=== PATIENT | female | born 1960 | race Caucasian/White ===

== ENCOUNTER → 2020-03-06 15:36 | Outpatient (CLI) | payer MEDICARE ==
[2020-03-06 16:45] LABS: BASOPHILS 0.1 % (0-2); EOSINOPHILS 0.2 % (0-7); HEMATOCRIT 31.7 % (36.0-48.0); HEMOGLOBIN 9.6 g/dL (12-16); IMMATURE GRANULOCYTES 0.3 % (0-5); LYMPHOCYTES 15.6 % (15-50); MCH 27.2 pg (26.0-34.0); MCHC 30.3 g/dL (31.0-37.0); MCV 89.8 fL (80.0-100.0); MEAN PLATELET VOLUME 8.3 fL (7.4-10.4); MONOCYTES 6.6 % (2-11); NEUTROPHILS 77.2 % (40-80); PLATELET COUNT 587 10x3/uL (130-400); RBC 3.53 10x6/uL (4.00-5.40); RDW 16.5 % (11.5-14.5); WBC 12.1 10x3/uL (4.8-10.8)
[2020-03-06 17:06] LABS: ALKALINE PHOSPHATASE 158 U/L (30-120); ALT (SGPT) 62 U/L (10-68); BILIRUBIN - TOTAL 0.16 mg/dL (0.2-1.3); CALC OSMOLALITY 272 mosm/kg (275-300); CALCIUM 9.7 mg/dL (8.5-10.1); CARBON DIOXIDE 23.8 mmol/L (21.0-32.0); CHLORIDE - SERUM 104 mmol/L (98-107); CREATININE - SERUM 0.7 mg/dL (0.6-1.3); FERRITIN 515 ng/mL (3-244); GLUCOSE 98 mg/dL (74-106); POTASSIUM - SERUM 3.5 mmol/L (3.5-5.1); PROTEIN - SERUM 7.3 g/dL (6.4-8.2); SODIUM 137 mmol/L (136-145); UREA NITROGEN 10 mg/dL (7-18); eGFR NON AFRICAN AMERICAN 90 mL/min (90-120)
== END | disposition home or self-care (01) ==
LOC: D.LAB 15:36
PROVIDERS: ATTEND Internal Medicine Hematology & Oncology
DX: D47.3 Essential (hemorrhagic) thrombocythemia (principal); E87.6 Hypokalemia; R79.9 Abnormal finding of blood chemistry, unspecified

== ENCOUNTER 2020-03-23 19:18 | Inpatient (IN) | payer MEDICARE, MEDICAID ==
[~2020-03-23] VITALS: Ht 157.5 cm; Wt 64.1 kg
--- NOTE | ~2020-03-23 | EC ---
PATIENT:MASTER CERVANTES DATE OF SERVICE: 03/23/20 SEX: F MEDICAL RECORD: [id number] DATE OF : 58 LOCATION:D.M2 D.212 AGE OF PATIENT: 59 ADMISSION DATE: 03/23/20 REFERRING PHYSICIAN: INTERPRETING PHYSICIAN: ALLIE VERDIN MD ECHOCARDIOGRAM REPORT ECHO CHARGES 4 ECHO COMPLETE Date: 03/25/20 CLINICAL DIAGNOSIS: SOB R/O THROMBUS OR TUMOR IN RA ECHOCARDIOGRAPHIC MEASUREMENTS (adult normal given) AC root (d.<3.7cm) 2.5 cm LV Septum d (<1.2 cm> 1.3 cm Valve Excursion 1.4 cm LV Septum (systole) 1.5 cm Left Atria (s.<4.0cm> 1.9 cm LVPW d(<1.2cm) 1.1 cm RV (d.<2.3cm) 2.1 cm LVPW (sytole) 1.8 cm LV diastole(<5.6CM) 4.0 cm MV E-F(>70mm/sec) cm LV systole 2.2 cm LVOT Diameter 1.8 cm MV exc.(>10mm) cm Est.ejection fraction (50-75%) % DOPPLER: LVIT cm/sec A 83.0 cm/sec E 105 cm/sec LA cm/sec RVSP 23.0 mmHg LVOT 97.0 cm/sec AOP1/2T m/s Asc. Ao 196 cm/sec RVOT 73.0 cm/sec RA cm/sec PA 92.0 cm/sec AV Gradient Peak 15.4 mmHg AV Mean 7.8 mmHg AV Area 1.3 cm MV Gradient Peak 5.7 mmHg MV Mean 1.6 mmHg MV Area cm COMMENTS: Cardiac Rehabilitation Program Director: Yaneli CLAUDIODSOE Coding Assistant: Jake Verdin TAPE# PACS Pericardial Effusion Y DATE OF SERVICE: 03/25/2020 PROCEDURE: Transthoracic echocardiogram. FINDINGS: Left ventricle: Mild left ventricular hypertrophy concentric. Ejection fraction between 35% to 40% with mild global hypokinesis. Left atrium is normal size and function. ECHOCARDIOGRAM REPORT [id number] MASTER CERVANTES Aortic valve appears to be normal. Mitral valve appears to be normal. Tricuspid valve is normal. Right ventricle is normal size and function. Right atrium is normal. There is no obvious area of tumor involving the right atrial structure. There is a small pericardial effusion. TRANSINT:[id number] Voice Confirmation ID: [id number] DOCUMENT ID: [id number] ALLIE VERDIN MD CC: [id number] DICTATION DATE: 03/25/20 184 STUDENT RECRUITER: 03/26/20 0209 ADM IN [facility] [address] [id number]
--- NOTE | 2020-03-23 20:32 | NUR ---
DR POWERS INSERTED LEFT JUGULAR IV FOR PATIENT.
[2020-03-23 20:38] LABS: BASOPHILS 0.1 % (0-2); EOSINOPHILS 0.1 % (0-7); HEMATOCRIT 32.8 % (36.0-48.0); HEMOGLOBIN 10.3 g/dL (12-16); IMMATURE GRANULOCYTES 0.3 % (0-5); LYMPHOCYTES 11.8 % (15-50); MCHC 31.4 g/dL (31.0-37.0); MCV 85.9 fL (80.0-100.0); MEAN PLATELET VOLUME 8.4 fL (7.4-10.4); MONOCYTES 5.5 % (2-11); NEUTROPHILS 82.2 % (40-80); PLATELET COUNT 597 10x3/uL (130-400); RBC 3.82 10x6/uL (4.00-5.40); RDW 16.8 % (11.5-14.5); WBC 15.7 10x3/uL (4.8-10.8)
[2020-03-23 20:54] LABS: APTT 37.1 SECONDS (22.8-39.4); INR 1.14 (0.85-1.17); PROTIME 14.5 SECONDS (11.6-15.0)
[2020-03-23 20:56] LABS: D-DIMER-QUANTITATIVE 1.94 ug/mLFEU (0.20-0.54)
[2020-03-23 21:06] LABS: ALBUMIN 2.2 g/dL (3.4-5.0); ALKALINE PHOSPHATASE 186 U/L (30-120); ALT (SGPT) 36 U/L (10-68); CALCIUM 9.7 mg/dL (8.5-10.1); CARBON DIOXIDE 27.7 mmol/L (21.0-32.0); CHLORIDE - SERUM 95 mmol/L (98-107); CKMB 1.1 U/L (0.0-3.6); CREATINE KINASE 24 UL (21-215); CREATININE - SERUM 1.1 mg/dL (0.6-1.3); PRO BNP 784 pg/mL (0-125); PROTEIN - SERUM 8.1 g/dL (6.4-8.2); SODIUM 133 mmol/L (136-145); UREA NITROGEN 12 mg/dL (7-18); eGFR NON AFRICAN AMERICAN 54 mL/min (90-120)
[2020-03-23 21:07] LABS: CALC OSMOLALITY 270 mosm/kg (275-300); GLUCOSE 181 mg/dL (74-106)
[2020-03-23 21:10] LABS: POTASSIUM - SERUM 2.7 mmol/L (3.5-5.1); TROPONIN-I < 0.017 ng/mL (0.000-0.060)
--- NOTE | 2020-03-23 22:10 | NUR ---
ZITHROMAX 25 CC INFUSED IN ER, TRANSFERRED WITH PATIENT TO FLOOR INFUSING.
--- NOTE | 2020-03-23 22:34 | NUR ---
PT ARRIVED TO ROOM VIA W/C. DYSPNEA ON EXERTION BUT GAIT SLOW AND STEADY. FREQUENT COUGH. ORIENTED TO ROOM. DAUGHTER AT BEDSIDE. NO DISTRESS OBSERVED. WILL CTM.
[2020-03-23] MEDS ORDERED: CYMBALTA30 MG PO (23:00)
[2020-03-23] MEDS ORDERED: CYCLOBENZAPRINE10 MG PO (23:00)
[2020-03-23] MEDS ORDERED: CYMBALTA60 MG PO (23:01)
[2020-03-23] MEDS ORDERED: TRAZODONE HCL150 MG PO (23:02)
[2020-03-23] MEDS ORDERED: ONDANSETRON ODT8 MG PO (23:03)
[2020-03-23] MEDS ORDERED: FUROSEMIDE40 MG PO (23:03)
[2020-03-23] MEDS ORDERED: CRESTOR20 MG PO (23:04)
[2020-03-23] MEDS ORDERED: LEVOTHYROXINE75 MCG PO (23:09)
[2020-03-23] MEDS ORDERED: [UNRECOGNIZED DRUG - OTHER] (23:09)
[2020-03-23] MEDS ORDERED: ALBUTEROL SULF8.5 GM INH (23:10)
[2020-03-23] MEDS ORDERED: LYRICA75 MG PO (23:10)
[2020-03-23] MEDS ORDERED: FERROUS SULFAT325 MG PO (23:32)
[2020-03-24 00:11] VITALS: BP 106/52; BMI 23.4
[2020-03-24 04:30] VITALS: BP 122/86
[2020-03-24] MEDS ORDERED: VALIUM10 MG PO (06:33)
--- NOTE | 2020-03-24 07:48 | NUR ---
PT RESTING PEACEFULLY, LYIN GIN BED. EYES CLOSED, BREATHS EVEN/REUGLAR AND UNLABORED. NO SIGNS OR SYMPTOMS OF ACUTE DISTRESS AT THIS TIME. DAUGHTER RESTING PEACEFULLY AT BEDSIDE IN RECLINER. CL IN REACH, SRX2.
[2020-03-24 09:51] LABS: % SATURATION 13 % (15-55); IRON 20 ug/dl (35-150); TOTAL IRON BIND CAPACITY 147 ug/dl (260-445); UNSAT IRON BIND CAPACITY 127 ug/dl (150-375)
[2020-03-24 10:01] LABS: BASOPHILS 0.1 % (0-2); EOSINOPHILS 0.1 % (0-7); HEMATOCRIT 31.7 % (36.0-48.0); HEMOGLOBIN 9.7 g/dL (12-16); IMMATURE GRANULOCYTES 0.4 % (0-5); LYMPHOCYTES 17.2 % (15-50); MCH 26.6 pg (26.0-34.0); MCHC 30.6 g/dL (31.0-37.0); MCV 87.1 fL (80.0-100.0); MEAN PLATELET VOLUME 8.6 fL (7.4-10.4); MONOCYTES 5.4 % (2-11); NEUTROPHILS 76.8 % (40-80); PLATELET COUNT 617 10x3/uL (130-400); RBC 3.64 10x6/uL (4.00-5.40); RDW 16.9 % (11.5-14.5); WBC 14.3 10x3/uL (4.8-10.8)
[2020-03-24 10:14] VITALS: BP 100/56
[2020-03-24 10:18] LABS: FERRITIN 714 ng/mL (3-244); MAGNESIUM - SERUM 1.7 mg/dL (1.8-2.4)
[2020-03-24 10:45] LABS: ALBUMIN 1.9 g/dL (3.4-5.0); ALKALINE PHOSPHATASE 173 U/L (30-120); ALT (SGPT) 36 U/L (10-68); BILIRUBIN - TOTAL 0.19 mg/dL (0.2-1.3); CALCIUM 9.7 mg/dL (8.5-10.1); CARBON DIOXIDE 24.9 mmol/L (21.0-32.0); CHLORIDE - SERUM 100 mmol/L (98-107); CKMB 1.1 U/L (0.0-3.6); CREATINE KINASE 17 UL (21-215); POTASSIUM - SERUM 3.1 mmol/L (3.5-5.1); PROTEIN - SERUM 8.2 g/dL (6.4-8.2); SODIUM 135 mmol/L (136-145); TROPONIN-I < 0.017 ng/mL (0.000-0.060); UREA NITROGEN 9 mg/dL (7-18); eGFR NON AFRICAN AMERICAN 77 mL/min (90-120)
[2020-03-24 10:55] LABS: CALC OSMOLALITY 269 mosm/kg (275-300); CREATININE - SERUM 0.8 mg/dL (0.6-1.3); GLUCOSE 114 mg/dL (74-106)
[2020-03-24 13:30] LABS: HEMATOCRIT 31.1 % (36.0-48.0); HEMOGLOBIN 9.4 g/dL (12-16); MCH 26.7 pg (26.0-34.0); MCHC 30.2 g/dL (31.0-37.0); MCV 88.4 fL (80.0-100.0); MEAN PLATELET VOLUME 8.4 fL (7.4-10.4); RBC 3.52 10x6/uL (4.00-5.40); RDW 17.1 % (11.5-14.5); WBC 13.3 10x3/uL (4.8-10.8)
[2020-03-24 13:41] LABS: APTT 30.1 SECONDS (22.8-39.4); INR 1.13 (0.85-1.17); PROTIME 14.5 SECONDS (11.6-15.0)
--- NOTE | 2020-03-24 14:09 | NUR ---
SPOKE WITH FILM INSPECTOR HONEY, SHE GAVE PERMISSION FOR PTS DAUGHTER TO SWAP OUT VISITORS. INFORMED PT DAUGTHER OF REQUIREMNTS AND CORINNE'VE AGREED. CL IN REACH, SRX2.
[2020-03-24 14:22] VITALS: BP 105/58
--- NOTE | 2020-03-24 18:11 | NUR ---
PT HAS BEEN ALERT AND ORIETNED THROUGHOUT THE DAY. VERY SOFT SPOKEN D/T FREQUENT COUGH AND GENERAL FEELING OF UNWELLNESS. DAUGHTER HAS BEEN AT BEDSIDE ON AND OFF ALL DAY. ALL QUESTIONS ANSWERED TO THE BEST OF MY ABIITY. NO COMPLAINTS OR CONCERNS AT THIS TIME. CL IN REACH, SRX2. NO ONE AT BEDSIDE AT THIS TIME.
[2020-03-24 19:26] LABS: INR 1.16 (0.85-1.17); PROTIME 14.7 SECONDS (11.6-15.0)
[2020-03-24 19:29] LABS: APTT 46.8 SECONDS (22.8-39.4)
[2020-03-25 00:30] VITALS: BP 111/63
[2020-03-25 01:28] LABS: BASOPHILS 0 % (0-2); EOSINOPHILS 0.2 % (0-7); HEMATOCRIT 29.4 % (36.0-48.0); HEMOGLOBIN 8.9 g/dL (12-16); IMMATURE GRANULOCYTES 0.2 % (0-5); LYMPHOCYTES 8.7 % (15-50); MCH 26.4 pg (26.0-34.0); MCHC 30.3 g/dL (31.0-37.0); MCV 87.2 fL (80.0-100.0); MEAN PLATELET VOLUME 8.3 fL (7.4-10.4); MONOCYTES 3.2 % (2-11); NEUTROPHILS 87.7 % (40-80); PLATELET COUNT 558 10x3/uL (130-400); RBC 3.37 10x6/uL (4.00-5.40); RDW 17.2 % (11.5-14.5); WBC 12.8 10x3/uL (4.8-10.8)
[2020-03-25 01:33] LABS: APTT 47.8 SECONDS (22.8-39.4); INR 1.15 (0.85-1.17); PROTIME 14.7 SECONDS (11.6-15.0)
[2020-03-25 01:44] LABS: ALKALINE PHOSPHATASE 162 U/L (30-120); ALT (SGPT) 40 U/L (10-68); CALC OSMOLALITY 268 mosm/kg (275-300); CALCIUM 9.3 mg/dL (8.5-10.1); CHLORIDE - SERUM 102 mmol/L (98-107); CREATININE - SERUM 0.7 mg/dL (0.6-1.3); GLUCOSE 119 mg/dL (74-106); MAGNESIUM - SERUM 1.5 mg/dL (1.8-2.4); POTASSIUM - SERUM 3.1 mmol/L (3.5-5.1); PROTEIN - SERUM 7.7 g/dL (6.4-8.2); SODIUM 135 mmol/L (136-145); UREA NITROGEN 7 mg/dL (7-18); eGFR NON AFRICAN AMERICAN 90 mL/min (90-120)
[2020-03-25 01:56] LABS: ALBUMIN 1.8 g/dL (3.4-5.0); BILIRUBIN - TOTAL 0.24 mg/dL (0.2-1.3); CARBON DIOXIDE 25.9 mmol/L (21.0-32.0)
[2020-03-25 04:30] VITALS: BP 97/50
--- NOTE | 2020-03-25 07:23 | NUR ---
PT AWAKE AND ORIENTED, LYING IN BED. DAUGHTER AT BEDSIDE. NO COPLAINTS OR CONCERNS VOICED AT THIS TIME. ALL QUESTIONS ANSWERED TO THE BEST OF MY ABILITY. PT HAS AUDIBLE WHEEZES IN ALL LUNG ROBERTS. CL IN REACH, SRX2.
[2020-03-25 07:44] LABS: INR 1.12 (0.85-1.17); PROTIME 14.3 SECONDS (11.6-15.0)
[2020-03-25 08:15] LABS: APTT 22.1 SECONDS (22.8-39.4)
[2020-03-25 08:22] VITALS: BP 98/56
--- NOTE | 2020-03-25 09:09 | NUR ---
PT ALERT AND OREITNED, LYING IN BED. TOOK MEDICATIONS WITHOUT COMPLICATIONS. FAMILY HAS ASKED ABOUT POSSIBILITY OF GETTING A CENTRAL LINE D/T STICKING DIFICULTY OF PATIENT AND THE FACT PT IS TIRED OF GETTING OF BEING POKED. SPOKE WITH MELISSA RIOS ABOUT THIS, SHE STATES IT WOULD BE BEST TO WAIT UNTIL TOMORROW AND THEN GETT A MIDLINE PLACED INSTEAD, D/T POTENTIONAL COMPLICATIONS WITH CENTRAL LINES. WILL INFORM PTS FAMILY AND PT WHEN DAUGHTER IS BACK IN ROOM. CL IN REACH, SRX2.
[2020-03-25 12:17] VITALS: BP 96/53
[2020-03-25 14:13] LABS: APTT 48.4 SECONDS (22.8-39.4); INR 1.18 (0.85-1.17)
--- NOTE | 2020-03-25 17:08 | NUR ---
PT HAS BEEN AWAKE AND ORIENTED, BUMPED UP HEPARIN TO 13 PER PROTOCOL. INFORMED HER OF PROCEDURE TOMORROW AND THAT SHE WILL BE NPO AFTER MIDNIGHT FOR BIOPSY AND POSSIBLE BRONCHOSCOPY. SON AT BEDSIDE. ADMINISTERED COUGH MEDICINE PRN. NO COMPLAINTS OR CONCERNS STATED AT THIS TIME. CL IN REACH, SRX2. ALL QUESTIONS ANSWERED TO THE BEST OF MY ABILITY.
--- NOTE | 2020-03-25 18:40 | NUR ---
I have reviewed this patient and I concur with the Shift Assessment completed by the Licensed Practical Nurse today this shift.
[2020-03-25 19:16] LABS: INR 1.27 (0.85-1.17); PROTIME 15.8 SECONDS (11.6-15.0)
[2020-03-25 19:17] LABS: APTT 54.2 SECONDS (22.8-39.4)
[2020-03-25 20:30] VITALS: BP 123/67
[2020-03-26] VITALS (8 sets, daily range): BP systolic 94–123; BP diastolic 50–68; BMI 23.4
--- NOTE | 2020-03-26 | NUR ---
HEPARIN DRIP D/C AT MIDNIGHT PER NURSING INSTRUCTION.
[2020-03-26 06:43] LABS: BASOPHILS 0.1 % (0-2); EOSINOPHILS 0 % (0-7); HEMATOCRIT 29.2 % (36.0-48.0); HEMOGLOBIN 8.6 g/dL (12-16); IMMATURE GRANULOCYTES 0.4 % (0-5); LYMPHOCYTES 11.5 % (15-50); MCH 26.1 pg (26.0-34.0); MCHC 29.5 g/dL (31.0-37.0); MCV 88.5 fL (80.0-100.0); MEAN PLATELET VOLUME 8.5 fL (7.4-10.4); MONOCYTES 4.2 % (2-11); NEUTROPHILS 83.8 % (40-80); PLATELET COUNT 567 10x3/uL (130-400); RDW 17.4 % (11.5-14.5)
[2020-03-26 06:47] LABS: INR 1.12 (0.85-1.17); PROTIME 14.3 SECONDS (11.6-15.0)
[2020-03-26 06:51] LABS: APTT 35.1 SECONDS (22.8-39.4)
[2020-03-26 06:53] LABS: ALBUMIN 1.8 g/dL (3.4-5.0); ALKALINE PHOSPHATASE 159 U/L (30-120); ALT (SGPT) 52 U/L (10-68); BILIRUBIN - TOTAL 0.19 mg/dL (0.2-1.3); CALC OSMOLALITY 277 mosm/kg (275-300); CALCIUM 9.6 mg/dL (8.5-10.1); CARBON DIOXIDE 22.4 mmol/L (21.0-32.0); CHLORIDE - SERUM 107 mmol/L (98-107); CREATININE - SERUM 0.8 mg/dL (0.6-1.3); GLUCOSE 115 mg/dL (74-106); MAGNESIUM - SERUM 1.7 mg/dL (1.8-2.4); POTASSIUM - SERUM 3.3 mmol/L (3.5-5.1); PROTEIN - SERUM 7.6 g/dL (6.4-8.2); SODIUM 139 mmol/L (136-145); UREA NITROGEN 10 mg/dL (7-18); URIC ACID 2.2 mg/dL (2.6-7.2); eGFR NON AFRICAN AMERICAN 77 mL/min (90-120)
--- NOTE | 2020-03-26 07:15 | NUR ---
RECEIVED PT IN BED AAOX4 RESP UNLABORED SKIN W/D COLOR WNL NAD NOTED
--- NOTE | 2020-03-26 14:10 | NUR ---
1340 RECEIVED PATIENT REPORT FROM Beto LARA RN TO ASSUME CARE OF PATIENT IN PACU
--- NOTE | 2020-03-26 15:27 | NUR ---
1500 IV INFILTRATED LEFT ARM. RESITED BY NAOMI ACUÑA CRNA TO R ANTECUBITAL AFTER 5 ATTEMPTS.
--- NOTE | 2020-03-26 16:02 | NUR ---
RECEIVED PT BACK FROM IR VIA BED TO ROOM AAOX4 RESP UNLABORED WILL CONTINUE TO MONITOR VSS
--- NOTE | 2020-03-26 19:15 | NUR ---
CALLED MARIA TERESA LIN TO MAKE SURE HE WAS AWARE PATIENT DOSENT HAVE A PIV. JIGNA TRUJILLO TRIED AND HAD A FAILED ATTEMPT WELL.
--- NOTE | 2020-03-26 23:38 | NUR ---
ERICK FROM THE LAB CALLED AND STATED THAT HE WAS CANCELING LABS THAT WERE NOT RECIEVED TODAY, TALKED WITH MARIA TERESA LIN AND HE ORDERED I RESCHEDULE THOSE LABS WITH 0500 LABS. WILL FOLLOW ORDER.
[2020-03-27] VITALS (10 sets, daily range): BP systolic 104–143; BP diastolic 57–99; Ht 157.5 cm; Wt 64.1 kg
[2020-03-27 06:12] LABS: APTT 36.7 SECONDS (22.8-39.4); INR 1.14 (0.85-1.17); PROTIME 14.5 SECONDS (11.6-15.0)
[2020-03-27 06:16] LABS: ALBUMIN 1.9 g/dL (3.4-5.0); ALKALINE PHOSPHATASE 162 U/L (30-120); BILIRUBIN - TOTAL 0.12 mg/dL (0.2-1.3); CALC OSMOLALITY 282 mosm/kg (275-300); CALCIUM 10.4 mg/dL (8.5-10.1); CARBON DIOXIDE 21.7 mmol/L (21.0-32.0); CHLORIDE - SERUM 109 mmol/L (98-107); CREATININE - SERUM 0.7 mg/dL (0.6-1.3); GLUCOSE 108 mg/dL (74-106); MAGNESIUM - SERUM 1.8 mg/dL (1.8-2.4); POTASSIUM - SERUM 3.1 mmol/L (3.5-5.1); PROTEIN - SERUM 7.7 g/dL (6.4-8.2); SODIUM 142 mmol/L (136-145); UREA NITROGEN 11 mg/dL (7-18); eGFR NON AFRICAN AMERICAN 90 mL/min (90-120)
[2020-03-27 06:21] LABS: BASOPHILS 0 % (0-2); EOSINOPHILS 0 % (0-7); HEMATOCRIT 29.8 % (36.0-48.0); HEMOGLOBIN 8.6 g/dL (12-16); IMMATURE GRANULOCYTES 0.5 % (0-5); LYMPHOCYTES 11.4 % (15-50); MCH 26.1 pg (26.0-34.0); MCHC 28.9 g/dL (31.0-37.0); MEAN PLATELET VOLUME 8.5 fL (7.4-10.4); MONOCYTES 5.1 % (2-11); PLATELET COUNT 552 10x3/uL (130-400); RBC 3.29 10x6/uL (4.00-5.40); RDW 17.7 % (11.5-14.5); WBC 15.6 10x3/uL (4.8-10.8)
[2020-03-27 06:27] LABS: MCV 90.6 fL (80.0-100.0)
[2020-03-27 07:10] LABS: ALT (SGPT) 66 U/L (10-68)
--- NOTE | 2020-03-27 08:38 | NUR ---
PICC placed per vascular access nurse. Did Confirm CVL placment consult with Dr Hines earlier this AM. Vascular nurse had yet to attempt PICC/Midline per Dr Hines vascular access nurse to attempt PICC/Midline if unable pt to have CVL in OR. Not needed at this time as PICC is inplace per vascular access nurse at bedside.
--- NOTE | 2020-03-27 12:26 | NUR ---
PREOP PEPCID AND REGLAN GIVEN. LR SPIKED AND HANGING AT BEDSIDE.
--- NOTE | 2020-03-27 13:21 | NUR ---
STRATTON CATH PLACED PER MD ORDER VIA STERILE TECHNIQUE PT TOLERATED WELL. IMMEDIATE RETURN OF LIGHT YELLOW CLEAR URINE.
[2020-03-27 13:41] LABS: INR 1.21 (0.85-1.17); PROTIME 15.2 SECONDS (11.6-15.0)
--- NOTE | 2020-03-27 14:19 | NUR ---
NEW ORDERS FOR CT, MRI AND BONE SCAN. PT AWAITING PROCEDURE OF BRONCH WITH STENT PLACMENT. CT REQUEST TO BE CALLED WHEN PT RETURNS TO HER ROOM AFTER PROCEDURE TODAY MRI WILL SCHEDULE FOR TOMORROW BONE SCAN TO NOTIFY NURSE OF POSSIBLE TIME AND IF TO BE TODAY OR TOMORROW
--- NOTE | 2020-03-27 14:34 | NUR ---
TRANSPORT HERE TO TAKE PT FOR BRONCH, TELEMETRY REMOVED, LR SENT WITH PT
--- NOTE | 2020-03-27 18:07 | NUR ---
ORDERED PT/PTT WITH INR. WILL WAIT FOR RESULTS BEFORE STARTING HEPARIN DRIP.
--- NOTE | 2020-03-27 18:09 | NUR ---
TRIED TO CALL [facility] TO GET REPORT.
--- NOTE | 2020-03-27 19:00 | NUR ---
PT REPORT RECEIVED FROM DAY SHIFT NURSE. NO ACUTE SIGNS OF DISTRESS NOTED. SHIFT ASSESSMENT COMPLETED. WILL CONTINUE TO [facility]
[2020-03-27 19:47] LABS: INR 1.27 (0.85-1.17); PROTIME 15.8 SECONDS (11.6-15.0)
--- NOTE | 2020-03-27 20:55 | NUR ---
PAGED DR THOMAS TO RELAY ABG RESULTS.
--- NOTE | 2020-03-27 21:03 | NUR ---
ABG RESULTS CALLED INTO DR THOMAS. ORDER RECEIVED TO DECREASE FIO2 TO 40%. ASKED ABOUT STARTING OG TUBE TO GIVE PM MEDS. STATED TO NOT START OG TUBE DUE TO VOCAL CORD SWELLING.
--- NOTE | 2020-03-27 21:28 | NUR ---
PAGED DR THOMAS TO SEE IF PT IS OKAY TO GO TO CT SCAN.
--- NOTE | 2020-03-27 21:29 | NUR ---
DR THOMAS GAVE OKAY FOR PT TO GO TO CT
--- NOTE | 2020-03-27 22:49 | NUR ---
PT TOLERATED CT SCAN WELL. BACK IN ROOM NOW. VSS. WILL CONTINUE TO MONITOR
[2020-03-28] VITALS (24 sets, daily range): BP systolic 98–121; BP diastolic 73–84
--- NOTE | 2020-03-28 02:00 | NUR ---
LAB IN TO REDRAW PTT. WILL CONTINUE TO MONITOR
--- NOTE | 2020-03-28 04:00 | NUR ---
I&O COMPLETED. SEE FLOWSHEET. PT RESTING IN BED COMFORTABLY. WILL CONTINUE TO MONITOR
[2020-03-28 05:03] LABS: BASOPHILS 0 % (0-2); EOSINOPHILS 0 % (0-7); HEMATOCRIT 29.5 % (36.0-48.0); HEMOGLOBIN 8.9 g/dL (12-16); IMMATURE GRANULOCYTES 0.3 % (0-5); LYMPHOCYTES 7.7 % (15-50); MCHC 30.2 g/dL (31.0-37.0); MCV 89.4 fL (80.0-100.0); MEAN PLATELET VOLUME 8.4 fL (7.4-10.4); MONOCYTES 2.3 % (2-11); NEUTROPHILS 89.7 % (40-80); PLATELET COUNT 493 10x3/uL (130-400); WBC 14.6 10x3/uL (4.8-10.8)
[2020-03-28 05:31] LABS: ALBUMIN 1.8 g/dL (3.4-5.0); ALKALINE PHOSPHATASE 159 U/L (30-120); ALT (SGPT) 52 U/L (10-68); CALC OSMOLALITY 280 mosm/kg (275-300); CALCIUM 9.9 mg/dL (8.5-10.1); CARBON DIOXIDE 22.1 mmol/L (21.0-32.0); CHLORIDE - SERUM 108 mmol/L (98-107); CREATININE - SERUM 0.8 mg/dL (0.6-1.3); GLUCOSE 129 mg/dL (74-106); MAGNESIUM - SERUM 1.7 mg/dL (1.8-2.4); POTASSIUM - SERUM 4.6 mmol/L (3.5-5.1); PROTEIN - SERUM 7.4 g/dL (6.4-8.2); SODIUM 140 mmol/L (136-145); UREA NITROGEN 13 mg/dL (7-18); eGFR NON AFRICAN AMERICAN 77 mL/min (90-120)
--- NOTE | 2020-03-28 07:00 | NUR ---
REPORT RECEIVED. ASSESSMENT COMPLETE PER FLOW SHEET. REFER FOR FINDINGS. WILL CONTINUE TO MONITOR
--- NOTE | 2020-03-28 09:00 | NUR ---
ORAL ENDOTRACH CARE ADM. REPOSITIONED FOR COMOFRT NEEDS MET
--- NOTE | 2020-03-28 09:00 | NUR ---
SPOKE WITH MARIA TERESA URRUTIA REGUARDING PT STATUS AT PAIN. NEW ORDERS RECEIVED. ADM.
--- NOTE | 2020-03-28 10:23 | NUR ---
Nutrition follow-up: Pt now intubated, sedated No NGT 2/2 swollen vocal cords To remain NPO for now Labs reviewed Wt:143# Recommend starting ProcalAmine PPN @ 100 ml/hr for short term nutrition support. If pt remains NPO > 7 days will need to provide TPN if unable to place NGT/OGT. RND following
--- NOTE | 2020-03-28 11:00 | NUR ---
REASSESSMENT COMPLETE PER FLOW SHEET. VSS. PT RESTING COMFORTABLY WILL CONTINUE TO MONITOR
--- NOTE | 2020-03-28 13:30 | NUR ---
DR GARCIA AT BEDSIDE GIVEN UPDATE. NO NEW ORDERS
--- NOTE | 2020-03-28 15:15 | NUR ---
REASSESSMENT COMLPETE PER FLOW SHEET VSS WILL CONTINUE TO MONITOR
--- NOTE | 2020-03-28 19:00 | NUR ---
PT REPORT RECEIVED FROM DAY SHIFT NURSE. NO ACUTE SIGNS OF DISTRESS NOTED. PT ON VENT. STRATTON IN PLACE. DR THOMAS WANTS PT HEAD ELEVATED AT LEAST 30 DEGREES. WANTS HEAD STRAIGHT WELL. WILL CONTINUE TO MONITOR
--- NOTE | 2020-03-28 21:12 | NUR ---
PT RESTING IN BED. NO COMPLANITS NOTED AT THIS TIME. ORDER FOR PTT RECHECK. WILL DRAW BLOOD WHEN LABEL IS OBTAINED FROM LAB
--- NOTE | 2020-03-28 23:30 | NUR ---
HEPARIN STOPPED FOR 30 MINUTES PER ORDER PROTOCOL.
--- NOTE | 2020-03-28 23:31 | NUR ---
PT RESTING IN BED. CHANGED SELENE PICC DRESSING. PT TOLERATED WELL. WILL CONTINUE TO MONITOR
[2020-03-29] VITALS (23 sets, daily range): BP systolic 102–149; BP diastolic 52–98
--- NOTE | 2020-03-29 | NUR ---
HEPARIN STARTED BACK AT LOWER RATE. SEE FLOW SHEET FOR DETAILS.
--- NOTE | 2020-03-29 01:56 | NUR ---
PT RESTING IN BED. NO SIGNS OF DISTRESS NOTED. VSS. WILL CONTINUE TO MONITOR
--- NOTE | 2020-03-29 02:56 | NUR ---
PT RESTING IN BED. REASSESSMENT COMPLETED. ORAL CARE PROVIDED. WILL CONTINUE TO MONITOR
[2020-03-29 03:50] LABS: BASOPHILS 0 % (0-2); EOSINOPHILS 0 % (0-7); HEMATOCRIT 29.9 % (36.0-48.0); HEMOGLOBIN 8.9 g/dL (12-16); IMMATURE GRANULOCYTES 0.4 % (0-5); LYMPHOCYTES 9.3 % (15-50); MCH 26.4 pg (26.0-34.0); MCHC 29.8 g/dL (31.0-37.0); MCV 88.7 fL (80.0-100.0); MEAN PLATELET VOLUME 8.6 fL (7.4-10.4); MONOCYTES 6.1 % (2-11); NEUTROPHILS 84.2 % (40-80); PLATELET COUNT 497 10x3/uL (130-400); RBC 3.37 10x6/uL (4.00-5.40); RDW 18.5 % (11.5-14.5); WBC 16.5 10x3/uL (4.8-10.8)
[2020-03-29 04:08] LABS: IMMUNOGLOBULIN E 32 IU/mL (6-495)
[2020-03-29 04:10] LABS: ALBUMIN 1.9 g/dL (3.4-5.0); ALKALINE PHOSPHATASE 156 U/L (30-120); ALT (SGPT) 54 U/L (10-68); BILIRUBIN - TOTAL 0.24 mg/dL (0.2-1.3); CALC OSMOLALITY 276 mosm/kg (275-300); CALCIUM 10.1 mg/dL (8.5-10.1); CARBON DIOXIDE 21.7 mmol/L (21.0-32.0); CHLORIDE - SERUM 105 mmol/L (98-107); CREATININE - SERUM 0.8 mg/dL (0.6-1.3); GLUCOSE 117 mg/dL (74-106); MAGNESIUM - SERUM 1.8 mg/dL (1.8-2.4); POTASSIUM - SERUM 4.2 mmol/L (3.5-5.1); PROTEIN - SERUM 7.4 g/dL (6.4-8.2); SODIUM 137 mmol/L (136-145); eGFR NON AFRICAN AMERICAN 77 mL/min (90-120)
[2020-03-29 04:11] LABS: UREA NITROGEN 19 mg/dL (7-18)
--- NOTE | 2020-03-29 05:24 | NUR ---
MAG HUNG TO REPLETE LOW LEVEL. WILL CONTINUE TO MONITOR
--- NOTE | 2020-03-29 07:15 | NUR ---
REPORT RECEIVED. ASSESSMENT COMPLETE PER FLOW SHEET. VSS. ORAL ENDOTRACH CARE ADM. REPOSITIONED FOR COMFORT. NO NEW CHANGES WILL CONTINUE TO MONITOR
--- NOTE | 2020-03-29 08:42 | NUR ---
CUFF DEFLATE TO FLAT PER DR THOMAS FOR WEANING X 15 MINUTES
--- NOTE | 2020-03-29 09:07 | NUR ---
PS TRIAL 10/5 MINIMAL LEAK TEST 15 MINUTES
--- NOTE | 2020-03-29 11:00 | NUR ---
REASSESSMENT COMPLETE PER FLOW SHEET. VSS. PT RESTING COMFORTABLY WILL CONTINUE TO MONITOR
--- NOTE | 2020-03-29 15:30 | NUR ---
REASSESSMENT COMPLETE, CPAP TRIALS AT THIS TIME, NO OTHER CHANGES NOTED, VSS, WILL CON'T TO MONITOR
--- NOTE | 2020-03-29 19:00 | NUR ---
ASSESSMENT COMPLETED PER FLOWSHEETS. PT SEDATED ON VENT AROUSES WITH VOICES. SR ON CM. CONT TO MONITOR.
--- NOTE | 2020-03-29 19:43 | MORECARE ---
CASE MANAGEMENT DISCHARGE SUMMARY PATIENT: MASTER CERVANTES S UNIT: [id number] ADM DATE: 03/23/20 AGE: 59 : 58 SEX: F ROOM/BED: D.2308 AUTHOR: TEE BRUCE PHYSICIAN: REFERRING PHYSICIAN: SHEREE MCPHERSON MD DATE OF SERVICE: 03/29/20 Discharge Plan Patient Name: MASTER CERVANTES Facility: [facility]:[place] : 1960 Planned Disposition: Home Anticipated Discharge Date: Discharge Date: Expected LOS: Initial Reviewer: [email or web address] Initial Review Date: 03/23/2020 Generated: 03/29/20 8:43 pm Patient Name: MASTER CERVANTES Page [id number] at 1943 All edits/amendments must be made on the electronic document DICTATION DATE: 03/29/201942 PARKING INSPECTOR: ALBA 03/29/201942 RPT#: [id number] DC DATE: STATUS: ADM IN [facility] [address] [place] [address] END OF REPORT
--- NOTE | 2020-03-29 19:50 | MORECARE ---
CASE MANAGEMENT DISCHARGE SUMMARY PATIENT: MASTER CERVANTES S UNIT: [id number] ADM DATE: 03/23/20 AGE: 59 : 58 SEX: F ROOM/BED: D.2308 AUTHOR: TEE BRUCE PHYSICIAN: REFERRING PHYSICIAN: SHEREE MCPHERSON MD DATE OF SERVICE: 03/29/20 Discharge Plan Patient Name: MASTER CERVANTES [facility] : 1960 Planned Disposition: Home Anticipated Discharge Date: Discharge Date: Expected LOS: Initial Reviewer: [email or web address] Initial Review Date: 03/23/2020 Generated: 03/29/20 8:50 pm DCPIA - Discharge Planning Initial Assessment Updated by [email or web address]: Maribel Deutsch on 03/29/20 7:45 pm * Is the patient Alert and Oriented? No * How many steps to enter\exit or inside your home? * PCP [facility] * [facility] * Preadmission Environment Home with Family * ADLs Independent * Equipment None * List name and contact numbers for known caregivers / representatives who currently or will assist patient after discharge: PAMELA CERVANTES- SPOUSE- [phone] ARIRA KIM - DAUGHTER - [phone] * Verbal permission to speak to the caregivers and representatives has been obtained from the patient. N/A * Community resources currently utilized None * Additional services required to return to the preadmission environment? No * Can the patient safely return to the preadmission environment? Yes * Has this patient been hospitalized within the prior 30 days at any hospital? No Last DP export: 03/29/20 6:43 pm Patient Name: MASTER CERVANTES Page 14283 at 1950 All edits/amendments must be made on the electronic document DICTATION DATE: 03/29/201949 FLAT CLOTHIER: ALBA 03/29/201949 RPT#: [id number] DC DATE: STATUS: ADM IN [facility] [address] [place] [address] END OF REPORT
--- NOTE | 2020-03-29 19:58 | MORECARE ---
CASE MANAGEMENT DISCHARGE SUMMARY PATIENT: MASTER CERVANTES UNIT: [id number] ADM DATE: 03/23/20 AGE: 59 : 58 SEX: F ROOM/BED: D.2308 AUTHOR: JANIS,DOC PHYSICIAN: REFERRING PHYSICIAN: SHEREE MCPHERSON MD DATE OF SERVICE: 03/29/20 Discharge Plan Patient Name: MASTER CERVANTES Facility: [facility]:[place] : 1960 Planned Disposition: Home Anticipated Discharge Date: Discharge Date: Expected LOS: Initial Reviewer: [email or web address] Initial Review Date: 03/23/2020 Generated: 03/29/20 8:57 pm Comments DCP- Discharge Planning Updated by [email or web address]: Maribel Deutsch on 03/29/20 6:[address] Patient Name: MASTER CERVANTES Admission Status: ER Accout number: [id number] Admission Date: 03-23-2020 : 1960 Admission Diagnosis:SHORTNESS OF BREATH Attending: ABIEL MCPHERSON Current LOS: 6 Anticipated DC Date: Planned Disposition: Home Primary Insurance: [employer] ADV Discharge Planning Comments: CM called and spoke with patient's Pamela to complete initial dc planning assessment. Patient is currently sedated on vent. CM educated patient on the CM role and verbal consent given by patient to complete assessment. Patient lives at home with family. Patient is independent. At discharge patient's spouse plans for her to return home and feels this is a safe discharge. CM discussed availability of home health, rehab services, and medical equipment. Patient will have family to transport home. Uncertain of discharge needs or disposition at this time. CM will continue to follow and will assist as needed with dc plans/needs. Head End Desizing Machine Operator: Maribel Deutsch DCPIA - Discharge Planning Initial Assessment Updated by [email or web address]: Maribel Deutsch on 03/29/20 7:45 pm * Is the patient Alert and Oriented? No * How many steps to enter\exit or inside your home? * PCP [facility] * Pharmacy [facility] * Preadmission Environment Home with Family * ADLs Independent * Equipment None * List name and contact numbers for known caregivers / representatives who currently or will assist patient after discharge: PAMELA CERVANTES- SPOUSE- [phone] HOLDEN KIM - DAUGHTER - [phone] * Verbal permission to speak to the caregivers and representatives has been obtained from the patient. N/A * Community resources currently utilized None * Additional services required to return to the preadmission environment? No * Can the patient safely return to the preadmission environment? Yes * Has this patient been hospitalized within the prior 30 days at any hospital? No Last DP export: 03/29/20 6:50 pm Patient Name: MASTER CERVANTES Page 99106 at 8 All edits/amendments must be made on the electronic document DICTATION DATE: 03/29/201956 MACHINE SCALLOP CUTTER: ALBA 03/29/201956 RPT#: [id number] DC DATE: STATUS: ADM IN [facility] [address] [place] [address] END OF REPORT
--- NOTE | 2020-03-29 21:00 | NUR ---
DAUGHTER AT BEDSIDE. UPDATED AND QUESTIONS ANSWERED.
--- NOTE | 2020-03-29 23:00 | NUR ---
REASSESSMENT COMPLETED. SEE FLOWSHEETS FOR ALL FINDINGS. NO ACUTE CHANGES NOTED IN PT'S STATUS. CPOC.
[2020-03-30] VITALS (24 sets, daily range): BP systolic 98–139; BP diastolic 64–98
--- NOTE | 2020-03-30 01:00 | NUR ---
COMPLETED FULL CHG BATH. SKIN CARE. LINEN AND GOWN CHANGES. MOUTH CARE PROVIDED. PT CHRISTIE WELL. REPOSITIONED FOR COMFORT. VSS. CPOC.
--- NOTE | 2020-03-30 03:00 | NUR ---
REASSESSMENT COMPLETED. SEE FLOWSHEETS FOR ALL FINDINGS. NO ACUTE CHANGES NOTED. VSS. CPOC.
--- NOTE | 2020-03-30 04:30 | NUR ---
I&O COMPLETED AND CHART.
--- NOTE | 2020-03-30 07:00 | NUR ---
BEDSIDE REPORT RECEIVED. SHIFT ASSESSMENT COMPLETED PER FLOWSHEET SEE FLOWSHEET FOR INOFRMATION. 0715 DEFLATTED ETT CUFF, REINFLATED ETT CUFF AT 0750 AND PUT ON PRESSURE SUPPORT TRIAL. NO ACUTE NEEDS OR DISTRESS NOTED AT THIS TIME. VSS. WILL CONT TO MONITOR.
[2020-03-30 07:43] LABS: HEMATOCRIT 30.5 % (36.0-48.0); HEMOGLOBIN 9.3 g/dL (12-16); MCHC 30.5 g/dL (31.0-37.0); MCV 88.4 fL (80.0-100.0); MEAN PLATELET VOLUME 8.7 fL (7.4-10.4); RBC 3.45 10x6/uL (4.00-5.40); RDW 18.9 % (11.5-14.5); WBC 16.3 10x3/uL (4.8-10.8)
--- NOTE | 2020-03-30 07:48 | NUR ---
PS TRAIL 07/30
--- NOTE | 2020-03-30 08:20 | NUR ---
Nutrition follow-up: Pt remains intubated, sedated with propofol Pt has been NPO since admit - 5 days PS trials today; may need trach placed if unable to wean Labs reviewed If NGT/OGT unable to be placed, at least start ProcalAmine @ 100 ml/hr to provide some nutrition support. RDN following.
--- NOTE | 2020-03-30 09:00 | NUR ---
AT BEDSIDE, BRONCHOSCOPY IN PROCESS. WILL CONT TO MONITOR.
[2020-03-30 10:11] LABS: FUNGUS STAIN Final report (())
--- NOTE | 2020-03-30 11:00 | NUR ---
REASSESSMENT COMPLETED PER FLOWSHEET, SEE FLOWSHEET FOR INFORMATION. PT TAKEN TO IMAGING FOR HEAD CT WITHOUT CONTRAST. VSS. WILL CONT TO MONITOR. ORAL AND INLINE SUCTIONED.
--- NOTE | 2020-03-30 12:38 | NUR ---
PER ZORAN PATIENTS NURSE SHE IS STILL NOT ABLE TO COME OFF HEPARIN DRIP FOR HER MRI BRAIN. WE WILL CHECK AGAIN TOMORROW.
--- NOTE | 2020-03-30 13:00 | NUR ---
ORAL CARE GIVEN PER COMFORT. NURSE DID WITNESS PT OPEN HER EYES TO HER NAME. WILL CONT TO MONITOR.
--- NOTE | 2020-03-30 15:00 | NUR ---
REASSESSMENT COMPLETED PER FLOWSHEET, SEE FLOWSHEET FOR INFORMATION. SPOKE WITH ABOUT CODE STATUS. HE SAYS "I WILL GET BACK WITH YOU IN A MINUTE, I NEED TO TALK WITH MY CHILDREN. EXPLAINED TO THAT HE CAN TAKE HIS TIME. NO ACUTE NEEDS OR DISTRESS NOTED AT THIS TIME. VSS. WILL CONT TO MONITOR.
--- NOTE | 2020-03-30 16:42 | NUR ---
PT RESPONDING TO STIMULI, PT OPENENING HER EYES AND FOLLOWS COMMAND WHEN TOLD TO BLIND HER EYES AND LOOK AT CERTAIN THINGS. PT UNABLE TO MOVE ARMS/HAMDS. AND AT BEDSIDE. WILL CONT TO MONITOR.
--- NOTE | 2020-03-30 17:00 | NUR ---
EXPLAINING UPDATES TO . WILL CONT TO MONITOR. VSS. WILL CONT TO MONITOR.
[2020-03-31] VITALS (25 sets, daily range): BP systolic 113–138; BP diastolic 75–99
--- NOTE | 2020-03-31 03:00 | NUR ---
REASSESSMENT PER FLOWSHEET, HR SR ON CM, VSS. POSITIONED FOR COMFORT, PARTIAL LINEN CHANGE DONE, CONT POC.
[2020-03-31 05:28] LABS: HEMATOCRIT 32.2 % (36.0-48.0); HEMOGLOBIN 9.8 g/dL (12-16); MCH 26.9 pg (26.0-34.0); MCHC 30.4 g/dL (31.0-37.0); MCV 88.5 fL (80.0-100.0); MEAN PLATELET VOLUME 9.2 fL (7.4-10.4); RBC 3.64 10x6/uL (4.00-5.40); RDW 19.3 % (11.5-14.5); WBC 17.4 10x3/uL (4.8-10.8)
--- NOTE | 2020-03-31 05:35 | NUR ---
NO VISITORS PRESENT AT THIS TIME, PT CALM RESTING ON VENT, AROUSES EASILY TO VOICE, HR SR ON CM, VSS.
--- NOTE | 2020-03-31 06:43 | NUR ---
HEPARIN GTT INCREASED TO 1200 UNITS/HR PER PROTOCOL, LAB PUT IN FOR 6 HOUR RE-CHECK.
--- NOTE | 2020-03-31 07:00 | NUR ---
BEDSIDE REPORT RECEIVED. SHIFT ASSESSMENT COMPLETED PER FLOWSHEET, SEE FLOWSHEET FOR INFORMATION. NO ACUTE NEEDS OR DISTRESS NOTED AT THIS TIME. PT ABLE TO OBEY COMMANDS. TANYA CONT TO MONITOR.
--- NOTE | 2020-03-31 09:00 | NUR ---
SPOKE WIT ABOUT CONSENT FOR POSSIBLE TRACH AND PEG, LEANA BHATIA WITNESSED CONSENT. WILL CONT TO MONITOR.
--- NOTE | 2020-03-31 10:09 | NUR ---
PT EXTUBATED AND PUT ON BIPAP PER . VSS. WILL CONT TO MONITOR.
--- NOTE | 2020-03-31 11:00 | NUR ---
REASSESSMENT COMPLETED PER FLOWSHEET, SEE FLOWSHEET FOR INFORMATION. PT TOLERATING EXTUBATION WELL. WILL CONT TO MONITOR.
--- NOTE | 2020-03-31 13:00 | NUR ---
PT RESTING IN BED WITH EYES CLOSED. PT RESONDS TO VOICE BY OPENING HER EYES, BUT SHE WILL IMMEDIATELY CLOSE THEM AND REST AGAIN. WILL CONT TO MONITOR.
--- NOTE | 2020-03-31 14:38 | NUR ---
3000 UNITS OF HEPARIN GIVEN IV BOLUS AND INCREASED HEPARIN DRIP TO 1400 PER HEPARIN EMAR ODERS. WILL CONT TO MONITOR. RECHEK PTT IN 6 HOURS.
--- NOTE | 2020-03-31 15:00 | NUR ---
REASSESSMENT COMPLETED PER FLOWSHEET, SEE FLOWSHEET FOR INFORMATION. NO ACUTE NEEDS OR DISTRESS NOTED AT THIS TIME. VSS. WILL CONT TO MONITOR.
--- NOTE | 2020-03-31 15:48 | NUR ---
PER JANNETTE MEEHAN, PATIENT STILL UNABLE TO COME OFF HEPARIN DRIP FOR MRI BRAIN. WILL TRY AGAIN TOMORROW.
--- NOTE | 2020-03-31 17:00 | NUR ---
ORAL CARE GIVEN, PT RESTING IN BED WITH EYES CLOSED. WILL CONT TO MONITOR.
--- NOTE | 2020-03-31 19:17 | OP ---
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 SURGEON: Dr. Dong ENERGY CONSERVATION REPRESENTATIVE: Dr. Jr Garcia I assisted Dr. Dong with the predilation of the right lower lobe bronchus and then deployment of the stent. He was the interventional bronchoscopist and I was his health assistant. No radiologist was present for this procedure. Static images were obtained and are kept in the PACS system. The interpretation of the images is dictated within Dr. Dong's operative note. My involvement in the operation included advancement of the 0.035 Jagwire. Loading the angioplasty balloon, which was a 10 mm x 40 mm balloon and then inflating it. We had to inflate to a pressure of 3 in order to obtain full deployment. I kept it in place for 3 minutes to avoid any significant bleeding. We then removed Jagwire as well as angioplasty balloon. Dr. Dong did another bronchoscopy which revealed that he could get by the obstructed area now and visualized the segmental bronchi. He then replaced the wire. This was visualized under fluoroscopy. Then, we advanced and deployed the partially covered 12 mm x 40 mm endobronchial stent between some metallic objects that had been placed on the patient's chest as well as the Glow 'N Tape. When the deployment was complete, the deployment device was removed. He performed bronchoscopy again and we felt that the stent was a little too deep and so under magnified fluoroscopy, he grabbed the pursestring suture and withdrew the stent about another centimeter. We both thought that the placement was just about perfect. That terminated the procedure. The bronchoscope was removed. I am waiting to visualize a portable chest x-ray. TRANSINT:[id number] Voice Confirmation ID: [id number] DOCUMENT ID: [id number] JR GARCIA MD at 1917 CC: [id number] DICTATION DATE: 03/27/20 1645 BUSINESS PROCESS COORDINATOR: 03/28/20 0309 [facility] IN [facility] [address] [place] [address]
--- NOTE | 2020-03-31 19:20 | NUR ---
RECIVED BEDSIDE REPORT AT THIS TIME. PT IS LAYING IN BED WITH BIPAP ON. SHE DOES OPEN EYES WHEN CALLED NAME AND CAN FOLLOW SOME DIRECTIONS LIKE MOVING HER FEET WHEN ASKED. SHE GETS VERY TIRED QUICKLY. HER VSS AT THIS TIME. SHE IS BREATHING 32 BREATH PER MIN, BUT OXYGEN IS 93%. WILL PERFORM FULL ASSESSMENT AND DOC IN FLOW SHEET. PICC LINE OBSERVED IN RIGHT UPPER ARM CDI, NO S/S OF INFILTRATION. HEPRAIN DRIP IS OBSERVED AT 1400 UNITS. BED IS LOW,SIDE RASIXL2,CALL LGIHT WITHIN REACH. BED ALARM IS ON. I REPOSITONED FOR COMFORT, ARMS ARE ELEVATED TO HELP WITH SWELLING AND FEET ARE BRIDGED OFF BED. WILL CONINTUE TO MONITOR
--- NOTE | 2020-03-31 20:44 | NUR ---
APPT IS BACK AT 69.4. NO CHANGE IS NEEDED PER HEPRAIN PROTOCOL. WILL RE-CHECK WITH AM LABS
--- NOTE | 2020-03-31 22:48 | NUR ---
PT IS RESTING IN BED WITH EYES CLOSED C BIPAP ON. VSS. SHE OPENS EYES WHEN CALLED NAME AND CONTINUES TO OBEY COMMANDS BUT WARES OUT VERY QUICKLY. SHE IS ON NO SADATION. REPOSITIONED FOR COMFORT AT THIS TIME AND HAVE ARMS ELEVATED ON TWO PILLOW BILAT TO HELP WITH EDEMA AND HEELS ARE BRIDGED. PERFORMED RE-ASSESSMENT AND WILL DOC IN FLOW SHEET. BED IS LOW,SIDE RAISLX2,CALL LIGTH WITHIN REACH. WILL CONITNUE TO MONITOR
[2020-04-01] VITALS (23 sets, daily range): BP systolic 99–123; BP diastolic 64–88
--- NOTE | 2020-04-01 01:14 | NUR ---
PT IS RESTING IN BED WITH EYES CLOSED AND BIPAP ON. VSS. REPOSITONED FOR COMFORT. ARMS ARE STILL ELEVATED ON PILLOWS BILAT. BED IS LOW,SIDE RAISLX2,CALL LIGHT WITHIN REACH. BED ALARM ON
--- NOTE | 2020-04-01 03:00 | NUR ---
PT IS RESTING IN BED WITH EYES CLOSED. AWAKES EASILY WHEN CALLED NAME. SHE STILL WILL NOT VERBALY RESPONDE BUT WILL MOVE FEET WHEN ASKED. WILL PERFORM RE-ASSSESSMENT AND DOC IN FLOW SHEET. HER VSS. CHANGED TUBING TO IV LINES AT THIS TIME. REPOSITIONED TO LEFT SIDE C BILAT ARMS ELEVATED ON PILLOWS AND HEELS ARE BRIDGED OFF OF BED. BED IS LEFT LOW,SIDE RAISLX2,CALL LIGHT WITHIN REACH. BED ALARM IS ON
--- NOTE | 2020-04-01 04:30 | NUR ---
PT IS RESTING IN BED WITH BIPAP ON. VSS. PROVIDED FULL BED BATH C HCG AND FULL LINEN CHANGE. PT TOLERATED WELL. SHE WAS A TOTAL ASSISTX2. REPOSITIONED FOR COMFORT AND BRIDGED FEET OFF BED. ARMS ARE AGAIN ELEVATED ON TWO PILLOWS BILAT TO HELP DECREASE ARM SWELLING. STRATTON CATHETOR CARE WAS ALSO PROVIDED. BED WAS LEFT LOW,SIDE RAILSX2,CALL LIGHT WITHIN REACH. WILL CONINTUE TO MONITOR.
[2020-04-01 04:48] LABS: HEMATOCRIT 32.7 % (36.0-48.0); HEMOGLOBIN 9.6 g/dL (12-16); MCHC 29.4 g/dL (31.0-37.0); MEAN PLATELET VOLUME 9.4 fL (7.4-10.4); RBC 3.55 10x6/uL (4.00-5.40); RDW 20.3 % (11.5-14.5); WBC 18.8 10x3/uL (4.8-10.8)
[2020-04-01 04:53] LABS: MCV 92.1 fL (80.0-100.0)
--- NOTE | 2020-04-01 05:20 | NUR ---
GOT CALL FROM LAB OF APPT ABOVE 200. STOPED HEPRAIN DRIP AT THIS TIME FOR 60 MINUTES THEN WILL START BACK AT 1100 UNITS/HR. RECHECK WILL BE AT 1220.
--- NOTE | 2020-04-01 06:27 | NUR ---
PT IS RESTING IN BED WITH EYES CLOSED. BIPAP IS ON. VSS. SHE OPENS EYES WHEN CALLED NAME. BED IS LOW,SIDE RAISLX2,CALL LGITH WITHIN REACH. WILL CONINTUE TO MONITOR
--- NOTE | 2020-04-01 07:00 | NUR ---
AWAKES EASILY TO VERBAL STIMULI SKIN WARM AND DRY. BIPAP IN PLACE. IV RIGHT UPPER ARM INFUSING WITH HEPARIN AT 1100 UNITS HOUR. STRATTON CATH PATENT. MOVES ALL EXTREMITITES ON REQUEST. MONITOR SR. UPPER EXTREMITIES EXTREMELY SWOLLEN AND WEEPING. HEAD OF ELEVATED 30 DEGREES. HEELS BRIDGED ON PILLOW.
--- NOTE | 2020-04-01 09:23 | NUR ---
REMOVED PT FROM BIPAP TO WEAN TO NC PER VERBAL ORDER DR THOMAS. AUDIBLE RHONCHI SPO2 94% ON HFNC@ 5 LPM, HR 78 NURSE NOTIFIED
--- NOTE | 2020-04-01 10:00 | NUR ---
ORAL CARE DONE, SUCTION LARGE AMOUNT THICK PALE YELLOW SECRETIONS FROM BACK OF HER THROAT. AUDIBLE RHOCHI NOTED. MAKES EYES CONTACT. OBEYS MOST COMMANDS. HEAD OF BED ELEVATED 30 DEGREES.
[2020-04-01 10:20] LABS: ANION GAP 19.4 mmol/L (8-16); BILIRUBIN - TOTAL 0.66 mg/dL (0.2-1.3); CALCIUM 9.8 mg/dL (8.5-10.1); CARBON DIOXIDE 19.6 mmol/L (21.0-32.0)
--- NOTE | 2020-04-01 12:41 | NUR ---
MRI CALLED REGARDING SCAN ON PATIENT. REVIEWED PATIENT STATUS TO BE DONE LATER TODAY.
--- NOTE | 2020-04-01 14:01 | NUR ---
NT SUCTION PATIENT LARGE AMOUNT THICK CHAVEZ SECRETIONS. SUCTIONS BACK ON THROAT, PATIENT DID COUGH UP SOME. PATIENT TOLERATED POORLY.
--- NOTE | 2020-04-01 15:33 | NUR ---
REPOSITIONED. RESTING MORE COMFORTABLY. EYES CLOSED AT TIMES.
--- NOTE | 2020-04-01 17:15 | NUR ---
TO MRI, PER STRETCHER, ON OXYGEN AT 6 LITERS PER NC. WITH ICU NURSE. SUCTION AND NT SUCTION PRIOR TO LEAVING ICU. BREATHING TREATMENT GIVEN PRIOR TO LEAVING.
--- NOTE | 2020-04-01 18:00 | NUR ---
RETURNED TO ROOM. TOLERATED FAIR. CLEAN LINEN APPLIED. PLACED ON BIPAP PULSE OX 85% AFTER TURNING.
[2020-04-02] VITALS (24 sets, daily range): BP systolic 96–126; BP diastolic 63–93
[2020-04-02 01:38] LABS: BASOPHILS 0.1 % (0-2); EOSINOPHILS 0 % (0-7); HEMATOCRIT 32.2 % (36.0-48.0); HEMOGLOBIN 9.5 g/dL (12-16); IMMATURE GRANULOCYTES 0.7 % (0-5); LYMPHOCYTES 5.6 % (15-50); MCH 27.4 pg (26.0-34.0); MCHC 29.5 g/dL (31.0-37.0); MCV 92.8 fL (80.0-100.0); MEAN PLATELET VOLUME 9.1 fL (7.4-10.4); MONOCYTES 4.1 % (2-11); NEUTROPHILS 89.5 % (40-80); PLATELET COUNT 365 10x3/uL (130-400); RBC 3.47 10x6/uL (4.00-5.40); RDW 20.5 % (11.5-14.5); WBC 16.7 10x3/uL (4.8-10.8)
[2020-04-02 01:50] LABS: ALBUMIN 1.9 g/dL (3.4-5.0); ALKALINE PHOSPHATASE 218 U/L (30-120); ALT (SGPT) 133 U/L (10-68); BILIRUBIN - TOTAL 0.57 mg/dL (0.2-1.3); CALC OSMOLALITY 315 mosm/kg (275-300); CHLORIDE - SERUM 115 mmol/L (98-107); GLUCOSE 144 mg/dL (74-106); PROTEIN - SERUM 7.3 g/dL (6.4-8.2); SODIUM 151 mmol/L (136-145); UREA NITROGEN 50 mg/dL (7-18)
[2020-04-02 01:53] LABS: CARBON DIOXIDE 25.9 mmol/L (21.0-32.0); CREATININE - SERUM 0.7 mg/dL (0.6-1.3); POTASSIUM - SERUM 3.3 mmol/L (3.5-5.1); eGFR NON AFRICAN AMERICAN 90 mL/min (90-120)
--- NOTE | 2020-04-02 02:36 | NUR ---
PTT RESULTS REVIEWED, HEPARIN GTT INCREASED BY 100 UNITS/HR PER PROTOCOL, LAB ORDERS PLACED FOR RECHECK IN 6 HOURS.
--- NOTE | 2020-04-02 07:15 | NUR ---
REPORT RECEIVED. ASSESSMENT COMPLETE PER FLOW SHEET. VSS. PT RESTING COMFORTABLY WILL CONTINUE TO MONITOR.
[2020-04-02 10:08] LABS: FUNGUS STAIN Final report (())
--- NOTE | 2020-04-02 10:10 | NUR ---
Nutrition follow-up: Pt extubated 03/31, on BIPAP; remains NPO Labs reviewed Wt:141# Recommned speech eval and diet advanced or nutrition support will need to resume. RDN following.
--- NOTE | 2020-04-02 12:11 | NUR ---
PAMELA AND DAUGHTER AT BEDSIDE SPOKE WITH DR BERMUDEZ AT GREAT LENGTH. GIVEN UDPATE. NO NEW CHANGES WILL CONTINUE TOMONITOR
--- NOTE | 2020-04-02 12:56 | MORECARE ---
CASE MANAGEMENT DISCHARGE SUMMARY PATIENT: MASTER CERVANTES UNIT: [id number] ADM DATE: 03/23/20 AGE: 59 : 58 SEX: F ROOM/BED: D.2308 AUTHOR: JANIS,DOC PHYSICIAN: REFERRING PHYSICIAN: SHEREE MCPHERSON MD DATE OF SERVICE: 04/02/20 Discharge Plan Patient Name: MASTER CERVANTES Facility: [facility]:[place] : 1960 Planned Disposition: Home Anticipated Discharge Date: Discharge Date: Expected LOS: Initial Reviewer: [email or web address] Initial Review Date: 03/23/2020 Generated: 04/02/20 1:55 pm Comments DCP- Discharge Planning Updated by [email or web address]: Kori Maurer on 04/02/20 11:[address] Master, with [place] [facility], called to notify that [facility] has the patient on their service. DCP- Discharge Planning Updated by [email or web address]: Maribel Deutsch on 03/29/20 6:[address] Patient Name: MASTER CERVANTES Admission Status: ER Accout number: [id number] Admission Date: 03-23-2020 : 1960 Admission Diagnosis:SHORTNESS OF BREATH Attending: ABIEL MCPHERSON Current LOS: 6 Anticipated DC Date: Planned Disposition: Home Primary Insurance: [employer] ADV Discharge Planning Comments: CM called and spoke with patient's Pamela to complete initial dc planning assessment. Patient is currently sedated on vent. CM educated patient on the CM role and verbal consent given by patient to complete assessment. Patient lives at home with family. Patient is independent. At discharge patient's spouse plans for her to return home and feels this is a safe discharge. CM discussed availability of home health, rehab services, and medical equipment. Patient will have family to transport home. Uncertain of discharge needs or disposition at this time. CM will continue to follow and will assist as needed with dc plans/needs. Software Licensing Executive: Maribel Deutsch DCPIA - Discharge Planning Initial Assessment Updated by [email or web address]: Maribel Deutsch on 03/29/20 7:45 pm * Is the patient Alert and Oriented? No * How many steps to enter\exit or inside your home? * PCP [facility] * Pharmacy [facility] * Preadmission Environment Home with Family * ADLs Independent * Equipment None * List name and contact numbers for known caregivers / representatives who currently or will assist patient after discharge: PAMELA CERVANTES- SPOUSE- [phone] HOLDEN KIM - DAUGHTER - [phone] * Verbal permission to speak to the caregivers and representatives has been obtained from the patient. N/A * Community resources currently utilized None * Additional services required to return to the preadmission environment? No * Can the patient safely return to the preadmission environment? Yes * Has this patient been hospitalized within the prior 30 days at any hospital? No Last DP export: 03/29/20 6:58 pm Patient Name: MASTER CERVANTES Page [id number] at 1256 All edits/amendments must be made on the electronic document DICTATION DATE: 04/02/20 1255 ELECTROSTATIC POWDER COATING TECHNICIAN: ALBA 04/02/20 1255 RPT#: [id number] DC DATE: STATUS: ADM IN [address] [place] [address] END OF REPORT
--- NOTE | 2020-04-02 21:07 | NUR ---
patient is on left side. received in report physician would like patient to stay off r side. patient desats when layed down or multiple stimulation. patient resting. weak. see assesment.
--- NOTE | 2020-04-02 21:46 | NUR ---
SPOKE WITH SISTER. GAVE UPDATE. STATED SOMEONE TOLD HER TODAY HER SISTER HAD BRAIN CANCER. STATED THE PHYSICIAN WAS TO READ THOSE RESULTS TO HER. SHE WANTED ME TO TELL HER THE BRAIN MRI RESULTS TOLD HER I COULD LET THE DAYSHIFT NURSE TO GET THE PHYSICIAN TO CALL HER AND LET HER KNOW THE RESULTS OF THE BRAIN MRI.
[2020-04-03] VITALS (21 sets, daily range): BP systolic 98–130; BP diastolic 60–97
--- NOTE | 2020-04-03 02:06 | NUR ---
patient appears to have glass like stare. agonal breathing noted. vital signs stable during this time.
--- NOTE | 2020-04-03 04:13 | NUR ---
PATIENT DESATTED. PAGED RESP. CHANGED BIPAP SETTINGS TO INCREASE SPO2
[2020-04-03 04:35] LABS: HEMATOCRIT 37.6 % (36.0-48.0); HEMOGLOBIN 10.4 g/dL (12-16); MCH 27.3 pg (26.0-34.0); MCHC 27.7 g/dL (31.0-37.0); MCV 98.7 fL (80.0-100.0); MEAN PLATELET VOLUME 9.9 fL (7.4-10.4); RBC 3.81 10x6/uL (4.00-5.40); WBC 29.3 10x3/uL (4.8-10.8)
[2020-04-03 04:48] LABS: ANION GAP 12.4 mmol/L (8-16); CALCIUM 10.5 mg/dL (8.5-10.1); CARBON DIOXIDE 29.5 mmol/L (21.0-32.0); MAGNESIUM - SERUM 2.5 mg/dL (1.8-2.4); PHOSPHOROUS 4.7 mg/dL (2.5-4.9)
[2020-04-03 04:49] LABS: POTASSIUM - SERUM 4.9 mmol/L (3.5-5.1)
--- NOTE | 2020-04-03 06:45 | NUR ---
REPORT RECEIVED. ASSESSMENT COMPLETE PER FLOW SHEET. VSS. PT RESTING COMFORTABLY WILL CONTINUET O MONITOR
--- NOTE | 2020-04-03 11:45 | NUR ---
PT GIVEN PRN MORPHINE FOR PAIN, PT USING ACCESSORY MUSCLES TO BREATH AT A RATE OF 40 O2 SAT 98% HR 87 BP 109/57. DAUGHTER ARABELLA AT BEDSIDE. GIVEN UPDATE. VERY UPSET AT THIS TIME, STORMED OUT OF UNIT. NERISSA BHATIA GIVEN UPDATE. ATTEMPT TO MAKE CONTANT WITH ARABELLA, PHONE OFF AT THIS TIME. STEP FATHER PAMELA CALLED GIVEN UDPATE. STATED WOULD TRY TO HANDLE IT.
--- NOTE | 2020-04-03 12:48 | MORECARE ---
CASE MANAGEMENT DISCHARGE SUMMARY PATIENT: MASTER CERVANTES UNIT: [id number] ADM DATE: 03/23/20 AGE: 59 : 58 SEX: F ROOM/BED: D.2308 AUTHOR: JANIS,DOC PHYSICIAN: REFERRING PHYSICIAN: SHEREE MCPHERSON MD DATE OF SERVICE: 04/03/20 Discharge Plan Patient Name: MASTER CERVANTES Facility: [facility]:[place] : 1960 Planned Disposition: Home Anticipated Discharge Date: Discharge Date: Expected LOS: Initial Reviewer: [email or web address] Initial Review Date: 03/23/2020 Generated: 04/03/20 1:47 pm DCP- Discharge Planning Updated by [email or web address]: Kori Maurer on 04/02/20 11:[address] Master, with [place] [facility], called to notify that [facility] has the patient on their service. DCP- Discharge Planning Updated by [email or web address]: Maribel Deutsch on 03/29/20 6:[address] Patient Name: MASTER CERVANTES Admission Status: ER Accout number: [id number] Admission Date: 03-23-2020 : 1960 Admission Diagnosis:SHORTNESS OF BREATH Attending: ABIEL MCPHERSON Current LOS: 6 Anticipated DC Date: Planned Disposition: Home Primary Insurance: [employer] MEDICARE ADV Discharge Planning Comments: CM called and spoke with patient's Pamela to complete initial dc planning assessment. Patient is currently sedated on vent. CM educated patient on the CM role and verbal consent given by patient to complete assessment. Patient lives at home with family. Patient is independent. At discharge patient's spouse plans for her to return home and feels this is a safe discharge. CM discussed availability of home health, rehab services, and medical equipment. Patient will have family to transport home. Uncertain of discharge needs or disposition at this time. CM will continue to follow and will assist as needed with dc plans/needs. Donor Relations Associate: Maribel Deutsch DCPIA - Discharge Planning Initial Assessment Updated by [id number]: Maribel Deutsch on 03/29/20 7:45 pm * Is the patient Alert and Oriented? No * How many steps to enter\exit or inside your home? * PCP [facility] * Pharmacy [facility] * Preadmission Environment Home with Family * ADLs Independent * Equipment None * List name and contact numbers for known caregivers / representatives who currently or will assist patient after discharge: PAMELA CERVANTES- SPOUSE- [phone] HOLDEN KIM - DAUGHTER - [phone] * Verbal permission to speak to the caregivers and representatives has been obtained from the patient. N/A * Community resources currently utilized None * Additional services required to return to the preadmission environment? No * Can the patient safely return to the preadmission environment? Yes * Has this patient been hospitalized within the prior 30 days at any hospital? No External Providers External Provider: [facility] *(provides in[facility] Next Contact Date: Service Request Date: Service Type: Resolution: Reviewer: Comments: Last DP export: 04/02/20 11:56 am Patient Name: MASTER CERVANTES Page [phone] at 1248 All edits/amendments must be made on the electronic document DICTATION DATE: 04/03/20 1247 RN URGENT CARE: ALBA 04/03/20 1247 RPT#: [id number] DC DATE: STATUS: ADM IN [facility] [address] [place] [address] END OF REPORT
--- NOTE | 2020-04-03 13:47 | NUR ---
SPOKE WITH [facility] WITH CASE MANAGEMENT. STATED HOSPICE ON THE WAY
--- NOTE | 2020-04-03 15:40 | NUR ---
HOSPICE AT BEDSIDE. FAMILY GIVEN UDPATE. STATES UNABLE FOR PT TO BE ON HOME HOSPICE DUE TO HIGH MORTALITY RISK WITH THE LONG AMBULANCE DRIVE BACK TO [facility], STATED INPATIENT HOSPICE WITH BIPAP MAY BE AN OPTION WILL TALK TO DOCTOR. STATED OKAY.
--- NOTE | 2020-04-03 19:00 | NUR ---
SHIFT ASSESSMENT COMPLETED. PT CARE ASSUMED, MONITORS ON AND WORKING, VITALS STABLE, FAMILY AT BEDSIDE. SEE FLOW SHEET FOR FURTHER DETAILS, WILL CONTINNUE TO OBSERVE.
--- NOTE | 2020-04-03 21:00 | NUR ---
OTHER FAMILY AT BEDSIDE AT THIS TIME, PT TURNED AND REPOSITIONED FOR COMFORT, MONITORS ON AND WORKING, BIPAP ON. WILL CONTINUE TO OBSERVE.
--- NOTE | 2020-04-03 23:00 | NUR ---
PT TURNED AND REPOSITIONED FOR COMFORT, MONITORS ON AND WORKING, SEE FLOW SHEET FOR FURTHER DETAILS.
[2020-04-04] VITALS (14 sets, daily range): BP systolic 60–101; BP diastolic 25–72
--- NOTE | 2020-04-04 01:00 | NUR ---
PT TURNED AND REPOSITIONED FOR COMFORT, MONITORS ON AND WORKING VSS, RESP LABORED. WILL CONTINUE TO OBSERVE.
--- NOTE | 2020-04-04 03:00 | NUR ---
PT TURNED AND REPOSITIONED FOR COMFORT, MONITORS ON AND WORKING, CHG BATH GIVEN AND COMPLETE LINEN CHANGE, SEE FLOW SHEET FOR FURTHER DETAILS. WILL CONTINUE TO OBSERVE.
--- NOTE | 2020-04-04 05:00 | NUR ---
PT LYING IN BED RESTING, MONITORS ON AND WORKING, VSS. WILL CONTINUE TO OBSERVE.
--- NOTE | 2020-04-04 07:20 | NUR ---
REPORT RECEIVED. ASSESSMENT COMPLETE PER FLOW SHEET. REFER FOR COMPLETE FINDINGS. PT ON O2 VIA NC 2L O2 SAT 92% RR 28 LABORED USING ACCESSORY MUSLCES TO BREATHE. WILL GIVEN PRN ATIVAN. PT NON RESPONSIVE. REPOSITIONED FOR COMFORT. VSS UPON LEAVING ROOM. NEEDS MET
--- NOTE | 2020-04-04 08:10 | NUR ---
DR PETTY AT BEDSIDE GIVEN UPDATE
[2020-04-04 08:19] LABS: ANION GAP 8.7 mmol/L (8-16); BILIRUBIN - TOTAL 0.44 mg/dL (0.2-1.3); CALCIUM 9.9 mg/dL (8.5-10.1); CARBON DIOXIDE 31.5 mmol/L (21.0-32.0); POTASSIUM - SERUM 5.2 mmol/L (3.5-5.1); PROTEIN - SERUM 7.3 g/dL (6.4-8.2)
[2020-04-04 08:22] LABS: CREATININE - SERUM 1.5 mg/dL (0.6-1.3)
--- NOTE | 2020-04-04 08:40 | NUR ---
PAMELA AT BEDSIDE GIVEN UDPATE.
--- NOTE | 2020-04-04 10:20 | NUR ---
PAMELA CALLED GIVEN UPDATE. PT DETERIATING. STATED UNDERSTANDING.
--- NOTE | 2020-04-04 11:00 | NUR ---
REASSESSMENT COMPLETE PER FLOW SHEET. VSS. NO NEW CHANGES WILL CONTINUE TO MONITOR
[2020-04-04 11:10] LABS: FUNGUS CULTURE RESULT 1 Candida albicans (()); FUNGUS MYCOLOGY CULTURE Preliminary report (())
--- NOTE | 2020-04-04 11:23 | NUR ---
DR BERMUDEZ AND DR COOK AT [facility] UPDATE.
--- NOTE | 2020-04-04 12:15 | NUR ---
AND FAMILY CALLED GIVEN UPDATE REGUARDING PT STATUS DECLINING AT THIS TIME. AWAITING ARRIVAL. ATTEMPT TO PLACE PT ON BIPAP, BIPAP UNABLE TO TRIGGER AT THIS TIME R/T LOW TV AND AGONAL BREATHING.
--- NOTE | 2020-04-04 12:45 | NUR ---
PAMELA AND JAYMIE AT BEDSIDE GIVEN UDPATE REGAURDING PT STATUS. ATTEMPT TO CONTACT MORE FAMILY WITH NO ANSWER. AWAITING FATHER AND KIDS ARRIVAL.
--- NOTE | 2020-04-04 13:47 | NUR ---
NO HR SEEN, NO HEART TONES HEARD AT THIS TIME. NO BREATH SEEN IN PAST [address] COOK CALLED GIVEN UPDATE TO PRONOUNCE. FAMILY GIVEN UDPATE
--- NOTE | 2020-04-04 13:55 | NUR ---
DAUGHTER AT BEDSIDE AT THIS TIME, GIVEN UPDATE, DAUGHTER FRANTIC YELLING AND CURSING AT STAF.. SECURITY CALLED. DAUGHTER LEFT HOSTILE THROUGH WAITING AREA.
--- NOTE | 2020-04-04 14:01 | NUR ---
DR COOK AT BEDSIDE TO PRONOUNCE.
--- NOTE | 2020-04-04 15:10 | NUR ---
HOME AT BEDSIDE. FAMILY GIVEN UPDATE.
--- NOTE | 2020-04-04 21:04 | MORECARE ---
CASE MANAGEMENT DISCHARGE SUMMARY PATIENT: MASTER CERVANTES UNIT: [id number] ADM DATE: 03/23/20 AGE: 59 : 58 SEX: F ROOM/BED: D.2308 AUTHOR: JANIS,DOC PHYSICIAN: REFERRING PHYSICIAN: SHEREE MCPHERSON MD DATE OF SERVICE: 04/04/20 Discharge Plan Patient Name: MASTER CERVANTES Facility: [facility]:[place] : 1960 Planned Disposition: Home Anticipated Discharge Date: Discharge Date: 04/04/2020 Expected LOS: Initial Reviewer: [email or web address] Initial Review Date: 03/23/2020 Generated: 04/04/20 10:03 pm DCP- Discharge Planning Updated by [email or web address]: Kori Maurer on 04/02/20 11:[address] Master, with [facility], called to notify that [facility] has the patient on their service. DCP- Discharge Planning Updated by [email or web address]: Maribel Deutsch on 03/29/20 6:[address] Patient Name: MASTER CERVANTES Admission Status: ER Accout number: [id number] Admission Date: 03-23-2020 : 1960 Admission Diagnosis:SHORTNESS OF BREATH Attending: ABIEL MCPHERSON Current LOS: 6 Anticipated DC Date: Planned Disposition: Home Primary Insurance: WE[employer] MEDICARE ADV Discharge Planning Comments: CM called and spoke with patient's Pamela to complete initial dc planning assessment. Patient is currently sedated on vent. CM educated patient on the CM role and verbal consent given by patient to complete assessment. Patient lives at home with family. Patient is independent. At discharge patient's spouse plans for her to return home and feels this is a safe discharge. CM discussed availability of home health, rehab services, and medical equipment. Patient will have family to transport home. Uncertain of discharge needs or disposition at this time. CM will continue to follow and will assist as needed with dc plans/needs. Bottle Blower: Maribel Deutsch DCPIA - Discharge Planning Initial Assessment Updated by [email or web address]: Maribel Deutsch on 03/29/20 7:45 pm * Is the patient Alert and Oriented? No * How many steps to enter\exit or inside your home? * PCP [facility] * Pharmacy [facility] * Preadmission Environment Home with Family * ADLs Independent * Equipment None * List name and contact numbers for known caregivers / representatives who currently or will assist patient after discharge: PAMELA CERVANTES- SPOUSE- [phone] HOLDEN KIM - DAUGHTER - [phone] * Verbal permission to speak to the caregivers and representatives has been obtained from the patient. N/A * Community resources currently utilized None * Additional services required to return to the preadmission environment? No * Can the patient safely return to the preadmission environment? Yes * Has this patient been hospitalized within the prior 30 days at any hospital? No Last DP export: 04/03/20 11:48 am Patient Name: MASTER CERVANTES Page [phone] at 2104 All edits/amendments must be made on the electronic document DICTATION DATE: 04/04/202102 PARTS IDENTIFICATION TECHNICIAN: ALBA 04/04/202102 RPT#: [id number] DC DATE:04/04/20 STATUS: DIS IN [facility] [address] [place] [address] END OF REPORT
[2020-04-05 08:12] LABS: FUNGUS CULTURE RESULT 1 Candida albicans (()); FUNGUS MYCOLOGY CULTURE Preliminary report (())
== END 2020-04-04 15:41 | DRG 208 ==
LOC: D.ER 19:18 → D.M2 21:19 → D.ICU 21:19
PROVIDERS: Family Medicine; Internal Medicine Pulmonary Disease; ADMIT Emergency Medicine; ATTEND Emergency Medicine
PROC: 0B9C8ZX Drainage of Right Upper Lung Lobe, Via Natural or Artificial Opening Endoscopic, Diagnostic (ICD-10-PCS; 2020-03-26)
PROC: 0B9K8ZX Drainage of Right Lung, Via Natural or Artificial Opening Endoscopic, Diagnostic (ICD-10-PCS; 2020-03-26)
PROC: 0B9F8ZX Drainage of Right Lower Lung Lobe, Via Natural or Artificial Opening Endoscopic, Diagnostic (ICD-10-PCS; 2020-03-26)
PROC: 0B928ZX Drainage of Carina, Via Natural or Artificial Opening Endoscopic, Diagnostic (ICD-10-PCS; principal; 2020-03-26 12:08)
PROC: 05HY33Z Insertion of Infusion Device into Upper Vein, Percutaneous Approach (ICD-10-PCS; 2020-03-27)
PROC: 0BH17EZ Insertion of Endotracheal Airway into Trachea, Via Natural or Artificial Opening (ICD-10-PCS; 2020-03-27)
PROC: 5A1945Z Respiratory Ventilation, 24-96 Consecutive Hours (ICD-10-PCS; 2020-03-27 15:15)
PROC: 0B9J8ZX Drainage of Left Lower Lung Lobe, Via Natural or Artificial Opening Endoscopic, Diagnostic (ICD-10-PCS; 2020-03-30)
PROC: 0B9F8ZX Drainage of Right Lower Lung Lobe, Via Natural or Artificial Opening Endoscopic, Diagnostic (ICD-10-PCS; 2020-03-30)
DX: J18.9 Pneumonia, unspecified organism (principal); J96.01 Acute respiratory failure with hypoxia; I26.99 Other pulmonary embolism without acute cor pulmonale; E43 Unspecified severe protein-calorie malnutrition; C34.90 Malignant neoplasm of unspecified part of unspecified bronchus or lung; J44.1 Chronic obstructive pulmonary disease with (acute) exacerbation; J44.0 Chronic obstructive pulmonary disease with (acute) lower respiratory infection; F17.203 Nicotine dependence unspecified, with withdrawal; I82.210 Acute embolism and thrombosis of superior vena cava; C79.31 Secondary malignant neoplasm of brain; Z66 Do not resuscitate; E03.9 Hypothyroidism, unspecified; E78.5 Hyperlipidemia, unspecified; E87.6 Hypokalemia; D47.3 Essential (hemorrhagic) thrombocythemia; D50.9 Iron deficiency anemia, unspecified; Z68.23 Body mass index [BMI] 23.0-23.9, adult; J30.9 Allergic rhinitis, unspecified